=== PATIENT | male | born 1995 | race Hispanic/Latino ===

== ENCOUNTER 2021-04-24 05:14 | Emergency (ER) | payer MEDICAID, OTHER ==
[~2021-04-24] VITALS: Ht 165.1 cm; Wt 72.6 kg
[2021-04-24 05:38] VITALS: BP 121/66
[2021-04-24 05:40] VITALS: BP 121/66
[2021-04-24] MEDS: ACETAMINOPHEN 325 MG TAB PO ONE (06:20)
[2021-04-24] MEDS: ASPIRIN 325MG TAB PO ONE (06:51)
[2021-04-24] MEDS: LACTATED RINGERS 1000ML 1,000 ML IV ONE (07:00)
[2021-04-24 07:01] VITALS: BP 129/76
[2021-04-24 07:08] LABS: BASOPHILS % (AUTO) 0.6 % (0.0-5.0); EOSINOPHILS % (AUTO) 0.4 % (0.0-8.0); HEMATOCRIT 43.9 % (42-54); LYMPHOCYTES % (AUTO) 15.3 % (21.0-51.0); MEAN CORPUSCULAR HEMOGLOBIN 31.2 pg (27.0-33.0); MEAN CORPUSCULAR HGB CONC 34.9 g/dL (32.0-36.0); MEAN CORPUSCULAR VOLUME 89.6 fL (79-99); MONOCYTES % (AUTO) 17.9 % (3.0-13.0); NEUTROPHILS % (AUTO) 65.6 % (40.0-77.0); PLATELET COUNT (AUTO) 179 K/uL (130-400); RED CELL DISTRIBUTION WIDTH 12.5 % (11.0-15.5); WHITE BLOOD COUNT (AUTO) 4.6 K/uL (4.8-10.8)
[2021-04-24 07:29] VITALS: BP 129/76
[2021-04-24] MEDS ORDERED: ALBUHFA IH (07:34)
[2021-04-24] MEDS ORDERED: BUDE90AE IH (07:34)
[2021-04-24 08:10] LABS: BILIRUBIN,TOTAL 0.4 mg/dL (0.2-1.0); CREATININE 1.3 mg/dL (0.5-1.5); MAGNESIUM 1.7 mg/dL (1.80-2.40); POTASSIUM 3.7 mmol/L (3.5-5.1); TOTAL PROTEIN, SERUM 7.5 g/dL (6.0-8.3)
== END 2021-04-24 07:56 | disposition home or self-care (01) ==
LOC: EDH 05:14
DX: U07.1 COVID-19 (principal); J12.82 Pneumonia due to coronavirus disease 2019; Z79.82 Long term (current) use of aspirin
CPT/HCPCS: 36415; 71045; 80053; 83605; 83690; 83735; 85025; 85378; 87040 ×2; 87426; 87804 ×2; 96360; 99284; J7120